=== PATIENT | female | born 1940 | race Asian ===

== ENCOUNTER 2017-10-13 12:26 | Emergency (ER) | payer OTHER ==
[2017-10-13] MEDS: ONDANSETRON (ODT) 4 MG TAB ODT (13:34)
== END 2017-10-13 14:25 | disposition home or self-care (01) ==
LOC: FTE 12:26
DX: J06.9 Acute upper respiratory infection, unspecified (principal)
CPT/HCPCS: 71045; 87400; 99284-25